=== PATIENT | male | born 1970 | race Caucasian/White ===

== ENCOUNTER → 2019-02-26 10:05 | Outpatient (CLI) | payer BC, SELFPAY ==
--- NOTE | 2019-02-26 10:06 | NM_ITS ---
CARDIOLITE SPECT MYOCARDIAL PERFUSION LEXISCAN, REST AND STRESS: History: Chest pain, shortness of breath, palpitations, syncope, fatigue and history of tobacco use Procedure: Patient exercised on Marck protocol 9 minutes and 30 seconds, resting heart rate was 67 bpm resting blood pressure 137/74, with exercise maximum heart rate achieved was 1 61 bpm which is greater than 85% of the maximum predicted heart rate and a blood pressure 184/92. Test was stopped due to shortness of breath and leg pain. Electrocardiogram: Resting echo showed sinus rhythm nonspecific ST-T changes, with exercise less than 1.[address] segment depression noted from the baseline EKG. The EKG portion of the exercise Myoview is negative for ischemia. Cardiac stress and resting SPECT images: Cardiac stress and resting SPECT images were obtained using technetium 99 Myoview 30.6 mCi stress and 10.6 mCi at rest. Gated SPECT further analysis of segmental wall motion and calculation of the ejection fraction also done. Cardiac stress and the suspect images show a fall myocardial activity without segmental perfusion abnormality, computer derived ejection fraction 61% with no regional wall motion abnormality, right ventricle is normal size and contractility. Conclusion: 1. The EKG portion of the exercise Myoview is negative for ischemia, patient has good exercise capacity achieved 10.1mets of workload on treadmill, the blood pressure response to exercise was adequate, there was no exercise-induced chest discomfort. 2. No scintigraphic evidence of reversible ischemia seen, computer derived ejection fraction is 61% with no regional wall motion abnormality, right ventricle is normal size and contractility. 3. Normal exercise Myoview study.
--- NOTE | 2019-02-26 10:06 | CA_ITS ---
PROCEDURE: 2-D M-mode and color Doppler study INDICATIONS FOR THE TEST: Chest pain X COPD Heart Murmur Tobacco Smoking Palpitations Fatigue Syncope Edema Hypertension Diabetes Mellitus Rheumatic Fever SOBXDOE Obesity Hyperlipidemia Family History HDX Additional History PATIENT INFORMATION HEIGHT: 70 WEIGHT:227 GENDER: Male B/P:132/84 2-D/M-MODE INTERPRETATION: 2-D MEASUREMENTS OBSERVED VALUES IN CMS Right Ventricular Dimension (RVDd) 3.0 Interventricular Septum (Thickness)(IVsd) .9 Left Ventricular Internal Dimensions(LVIDd) 4.8 Left Ventricular Posterior Wall (Thickness)(LVPWd) 1.1 Aortic Root 3.1 Aortic Cusp Separation 2.1 Left Atrial Dimensions (LAD) 3.7 2D 1. Left atrium is mildly enlarged, left ventricle is normal size, left ventricle wall thickness is upper limit of normal, visually estimated ejection fraction 55% with no regional wall motion abnormality. 2. The right atrium and right ventricle are relatively normal size and function. 3. The aortic valve is minimally thickened and fibrosed. 4. The mitral and tricuspid valvular grossly normal. 5. Pulmonic valve is poorly visualized. 6. No significant pericardial effusion noted. DOPPLER INTERROGATION: Doppler interrogation of the aortic, mitral and tricuspid valvular presence of mild mitral and tricuspid regurgitation, tricuspid regurgitation jet velocity is inadequate for calculation of the right ventricular systolic pressure, grade 1 diastolic dysfunction seen without tissue Doppler evidence of raised left atrial pressure, inferior vena cava is normal size normal inspiratory collapse. CONCLUSION: 1. Mildly enlarged left atrium, normal left ventricular size, visually estimated ejection fraction 55% with no regional wall motion abnormality, grade 1 diastolic dysfunction seen without tissue Doppler evidence of raised left atrial pressure. Inferior vena cava is normal size with normal inspiratory collapse. 2. Mild mitral and tricuspid regurgitation 3. No significant pericardial effusion noted.
== END ==
PROVIDERS: PCP Nurse Practitioner Family; Visit Provider Urology
DX: R06.02 Shortness of breath (principal); R07.9 Chest pain, unspecified; Z82.49 Family history of ischemic heart disease and other diseases of the circulatory system; G47.33 Obstructive sleep apnea (adult) (pediatric)
CPT/HCPCS: 78452; 93017; 93306; A9502; G0399

== ENCOUNTER → 2019-06-18 20:08 | Outpatient (CLI) | payer BC, SELFPAY ==
--- NOTE | 2019-06-18 20:32 | XR_ITS ---
PROCEDURE: XR CHEST 2V CLINICAL HISTORY: chest pain, sob COMPARISON: No exams were available for comparison FINDINGS: There is mild prominence of the cardiac silhouette. There are pericardial fat pad adding to this prominence. The lungs are clear without infiltrates, suspicious nodules, or pleural effusions. There is mild wedging involving T8 and T7 which could be chronic. There are no previous exams available for comparison. IMPRESSION: Borderline cardiomegaly, no definite acute finding Dictated by: Jairo Contreras MD 06/19/2019 06:24 Electronically signed by Jairo Contreras MD in [facility] 06/19/2019 06:24
== END ==
PROVIDERS: PCP Nurse Practitioner Family; Visit Provider Specialist
DX: R06.00 Dyspnea, unspecified (principal); R07.9 Chest pain, unspecified; G47.33 Obstructive sleep apnea (adult) (pediatric); R40.0 Somnolence; G47.8 Other sleep disorders
CPT/HCPCS: 71046; 95811

== ENCOUNTER → 2019-07-09 07:34 | Outpatient (CLI) | payer SELFPAY ==
--- NOTE | 2019-07-09 07:35 | CT_ITS ---
PROCEDURE: CT HEART W CALCIUM SCORE CLINICAL HISTORY: chest pain,sob,fatigue COMPARISON: No exams were available for comparison TECHNIQUE: Axial images obtained with sagittal and coronal reformats. All CT scans at the facility use one or more dose reduction, viz: automated exposure control, ma/kV adjustment per patient size (including targeted exams where dose is matched to indication, i.e. head), or iterative reconstruction technique. FINDINGS: Coronary artery calcium score is 11 with minimal plaque burden and low cardiovascular disease risk. Incidental: Minimal atelectatic change in the lung bases IMPRESSION: Minimal plaque burden with low cardiovascular disease risk Dictated by: Jairo Contreras MD 07/09/2019 18:28 Electronically signed by Jairo Contreras MD in [facility] 07/09/2019 18:28
== END ==
PROVIDERS: PCP Nurse Practitioner Family; Visit Provider Internal Medicine Cardiovascular Disease
DX: Z13.6 Encounter for screening for cardiovascular disorders (principal); R06.02 Shortness of breath; R07.9 Chest pain, unspecified; R53.83 Other fatigue
CPT/HCPCS: 75571

== ENCOUNTER → 2019-09-03 10:52 | Outpatient (CLI) | payer BC, SELFPAY ==
[2019-09-03 12:53] LABS: Alanine Aminotransferase 31 U/L (12-78); Albumin Level 3.8 gm/dL (3.4-5.0); Alkaline Phosphatase 85 U/L (46-116); Aspartate Amino Transferase 19 U/L (15-37); Bilirubin,Direct 0.2 mg/dL (0.0-0.2); Bilirubin,Indirect 0.3 mg/dL (0.0-0.9); Bilirubin,Total 0.5 mg/dL (0.2-1.0); Chol/HDL Ratio 3.5 (1-3.5); Cholesterol 139 mg/dL (140-200); HDL Cholesterol 40 mg/dL (27-67); LDL Cholesterol 88 mg/dL (0-130); Total Protein,Serum 6.8 gm/dL (6.4-8.2); Triglycerides 56 mg/dL (30-200); VLDL Cholesterol 11 mg/dL (0-40)
== END ==
PROVIDERS: Urology; Visit Provider Internal Medicine Cardiovascular Disease
DX: R07.9 Chest pain, unspecified (principal); R06.09 Other forms of dyspnea; I10 Essential (primary) hypertension; R53.83 Other fatigue; G47.33 Obstructive sleep apnea (adult) (pediatric); Z79.899 Other long term (current) drug therapy
CPT/HCPCS: 36415; 80061; 80076

== ENCOUNTER → 2020-09-13 08:48 | Outpatient (CLI) | payer BC, SELFPAY ==
[2020-09-13 09:12] LABS: Chloride 101 mmol/L (98-107); Potassium 3.4 mmoL/L (3.5-5.1); Sodium 141 mmol/L (136-145)
[2020-09-13 09:15] LABS: Anion Gap 12.4 mEq/L (5-15); Blood Urea Nitrogen 12 mg/dl (9-20); Calcium 9.8 mg/dl (8.4-10.2); Carbon Dioxide 31 mmol/L (22.0-30.0); Estimated Glomerular Filt Rate 79 ml/min (>60); GFR (African American) 96 ML/MIN (>60); Glucose 119 mg/dl (74-100)
== END ==
PROVIDERS: Visit Provider Urology
DX: R06.09 Other forms of dyspnea (principal); I10 Essential (primary) hypertension; I51.89 Other ill-defined heart diseases; K21.9 Gastro-esophageal reflux disease without esophagitis; R53.83 Other fatigue; G47.33 Obstructive sleep apnea (adult) (pediatric)
CPT/HCPCS: 36415; 80048

== ENCOUNTER → 2021-03-23 08:46 | Outpatient (CLI) | payer BC, SELFPAY | PROVIDERS: PCP Nurse Practitioner Family; Visit Provider Nurse Practitioner Family | DX: G47.33 Obstructive sleep apnea (adult) (pediatric) (principal) | CPT/HCPCS: 94762 ==